=== PATIENT | female | born 1975 | race Caucasian/White ===

== ENCOUNTER 2024-07-03 04:37 | Emergency (ER) | payer OTHER ==
[~2024-07-03] VITALS: Ht 162.6 cm; Wt 90.0 kg
[2024-07-03] MEDS ORDERED: WEGOVY0.25 MG/0. SQ (04:52)
[2024-07-03 05:13] LABS: BASOPHILS 0.6 % (0-2); EOSINOPHILS 2.7 % (0-6); HEMATOCRIT 40.8 % (35.0-50.0); HEMOGLOBIN 13.8 g/dL (12.0-18.0); LYMPHOCYTES 16.4 % (24-44); MCH 29.1 (27-36); MCHC 33.9 g/dl (30-36); MCV 85.8 fl (81-99); MONOCYTES 4.5 % (0-12); NEUTROPHILS 75.8 % (39-80); PLATELET COUNT 290 K/uL (140-440); RBC 4.76 M/ul (4.3-5.7); RDW 14.7 (10.5-15.0)
[2024-07-03] MEDS ORDERED: ondansetron HCL 4 MG/2 ML VIAL IV ONE (05:15)
[2024-07-03] MEDS ORDERED: LACTATED RINGER'S 1,000 ML IV ONE (05:15)
[2024-07-03 05:32] LABS: ALBUMIN 4.4 g/dL (3.4-5.0); ALBUMIN/GLOBULIN RATIO 1.07 (1.1-2.4); ANION GAP 17.3 (7-21); BILIRUBIN, TOTAL 0.4 mg/dL (0.2-1.0); BUN/CREATININE RATIO 14.89 (6.0-28.6); CALCIUM 9.7 mg/dL (8.5-10.1); CREATININE, SERUM 0.94 mg/dL (0.55-1.02); POTASSIUM 3.3 mmol/L (3.5-5.1); PROTEIN, TOTAL 8.5 g/dL (6.4-8.2)
[2024-07-03 06:41] LABS: BILIRUBIN, URINE NEGATIVE (negative); BLOOD/HGB, URINE LARGE (Negative); KETONE, URINE NEGATIVE (Negative); LEUK ESTERASE, URINE NEGATIVE (negative); NITRITE, URINE NEGATIVE (negative); PH, URINE 6.5 (5-7)
[2024-07-03] MEDS ORDERED: ONDANSETRON 4 MG HOME.PACK SL ONE (06:45)
[2024-07-03 06:51] LABS: EPITHELIAL CELLS, URINE SQUAMOUS 1+ /lpf (0-1+)
[2024-07-03 06:52] LABS: BACTERIA, URINE NONE SEEN /hpf (negative); CASTS, URINE NONE SEEN \\lpf; COLLECTION TYPE, URINE CLEAN CATCH; CRYSTALS, URINE NONE SEEN (0-1+); RED BLOOD CELLS, URINE 21-40 /hpf (0-5)
[2024-07-03 06:53] LABS: REFLEX CULTURE, URINE No (No)
[2024-07-03 07:02] LABS: AMPHETAMINES, URINE NEGATIVE (NEGATIVE); BARBITURATES, URINE NEGATIVE (NEGATIVE); BENZODIAZEPINE, URINE NEGATIVE (NEGATIVE); BUPRENORPHINE, URINE NEGATIVE (NEGATIVE); CANNABINOID, URINE NEGATIVE (NEGATIVE); COCAINE, URINE NEGATIVE (NEGATIVE); ECSTASY, URINE NEGATIVE (NEGATIVE); FENTANYL, URINE NEGATIVE (NEGATIVE); METHADONE, URINE NEGATIVE (NEGATIVE); OPIATES, URINE NEGATIVE (NEGATIVE); OXYCODONE, URINE NEGATIVE (NEGATIVE); PHENCYCLIDINE, URINE NEGATIVE (NEGATIVE)
[2024-07-03 07:08] VITALS: BP 126/82
--- NOTE | 2024-07-03 19:48 | EKG ---
[facility] [address] [facility] [address] [place], [place] [address] Signed Sinus tachycardia T wave abnormality, consider inferior ischemia Abnormal ECG No previous ECGs available Confirmed by Casey Zuniga MD ([id number]) on 07/03/2024 7:48:10 PM Electronically Signed By: CASEY ZUNIGA MD 07/03/241947 PATIENT NAME: KRISTEN REED Electrocardiogram DATE OF : 73 PHYSICIAN: CASEY ZUNIGA MD REPORT #: [id number] REPORT IS CONFIDENTIAL AND NOT TO BE RELEASED WITHOUT AUTHORIZATION
== END 2024-07-03 07:17 | disposition home or self-care (01) ==
LOC: ED 04:37
PROVIDERS: Internal Medicine
DX: R55 Syncope and collapse (principal); R11.2 Nausea with vomiting, unspecified; R19.7 Diarrhea, unspecified; T38.3X5A Adverse effect of insulin and oral hypoglycemic [antidiabetic] drugs, initial encounter; Z79.899 Other long term (current) drug therapy
CPT/HCPCS: 36415; 71045; 80053; 80307; 81001; 83690; 84439; 84443; 84484; 85025; 93005; 93010; 96361; 96374; 99284-25; A9270; J2405; J7121

== ENCOUNTER 2024-12-30 07:37 | Day surgery (SDC) | payer OTHER ==
[~2024-12-30] VITALS: Ht 162.6 cm; Wt 85.0 kg
[~2024-12-30 07:37] MED LIST: IBLOOD GLUCOSE TEST STRIP 1 EA TEST VI PRN; LACTATED RINGER'S 1,000 ML IV SCH; LIDOCAINE HCL 1% 5 ML SDV INJ ONE; WEGOVY0.25 MG/0. SQ; ZESTRIL10 MG PO
[2024-12-30] MEDS ORDERED: LIDOCAINE HCL 2% 5 ML SDV ONE (07:50)
[2024-12-30 08:14] VITALS: BP 164/87
[2024-12-30] MEDS ORDERED: GLUCAGON,HUMAN RECOMBINANT 1 MG/ML VIAL ONE (09:41)
--- NOTE | 2024-12-30 10:36 | NUR ---
12/30/24 1036 Tana Dillon 1030: PT ARRIVES TO PACU ASLEEP AND NON REACTIVE. REPORT RECIEVED FROM INTERNAL CORROSION SPECIALIST AND EHR TRAINER.
[2024-12-30 11:01] VITALS: BP 118/67
--- NOTE | 2025-01-01 10:56 | PATH ---
[facility] [address] [place], [place] [address] Signed SPECIMEN(S): A HEPATIC FLEXURE COLON POLYP SPECIMEN(S): B CECUM COLON POLYP SPECIMEN(S): C MID TRANSVERSE COLON POLYP SPECIMEN SOURCE: A. HEPATIC FLEXURE COLON POLYP B. CECUM COLON POLYP C. MID TRANSVERSE COLON POLYP CLINICAL HISTORY: Screening. Post-polyp A-C) polyp FINAL PATHOLOGIC DIAGNOSIS: A. Hepatic flexure colon polyp: - Hyperplastic polyp and (three fragments). B. Cecum colon polyp: - Serrated polyp/adenoma (two fragments). C. Mid transverse colon polyp: - Slight adenomatous change (one fragment). [facility] MICROSCOPIC EXAMINATION: Histologic sections of all submitted blocks are examined by light microscopy. These findings, together with the gross examination, support the pathologic diagnosis. GROSS DESCRIPTION: A. The specimen, labeled and designated "Yvonne, hepatic flexure colon polyp," is received in formalin and consists of three hogan soft tissue fragments, ranging from 0.2-0.3 cm. Entirely submitted in (A1). B. The specimen, labeled and designated "[place], cecum colon polyp," is received in formalin and consists of two hogan soft tissue fragments, ranging from 0.2-0.3 cm. Entirely submitted in (B1). C. The specimen, labeled and designated "[place], mid transverse colon polyp," is received in formalin and consists of one hogan soft tissue fragment, 0.3 cm. Entirely submitted in (C1). AB (under the direct supervision of a pathologist) The Gross Description was prepared using a voice recognition system. The report was reviewed for accuracy; however, sound-alike word errors, addition and/or PATIENT NAME: KRISTEN REED PATHOLOGY DATE OF : 73 REPORT #: [id number] PHYSICIAN: DYLAN PATHOLOGY PCP: SCAR BAY MD REPORT IS CONFIDENTIAL AND NOT TO BE RELEASED WITHOUT AUTHORIZATION [facility] [address] [place], [place] [address] Signed deletions may occur. If there is any question about this report, please contact Client Services. ADDITIONAL NOTES: Immunohistochemical and/or in situ hybridization studies if performed in this case included appropriate positive controls that reacted as expected. This test was developed and its performance characteristics determined by [facility]. It has not been cleared or approved by the U.S. Food and Drug Administration. The FDA has determined that such clearance or approval is not necessary. This test is used for clinical purposes. It should not be regarded as investigational or for research. [facility] is certified under the Clinical Laboratory Improvement Amendments of 1988 (CLIA) as qualified to perform high complexity clinical laboratory testing. PERFORMING LABORATORY: Technical component was performed by [facility], [address] [place] [id number] (CLIA# [id number]). Professional interpretation was performed by [facility] - [place] - [address] [place] [address] (CLIA#: [id number]). Diagnostician: Arias Valencia MD Pathologist Electronically Signed 01/01/2025 Copies: ~ PATIENT NAME: KRISTEN REED PATHOLOGY DATE OF : 73 REPORT #: [id number] PHYSICIAN: DYLAN PATHOLOGY PCP: SCAR BAY MD REPORT IS CONFIDENTIAL AND NOT TO BE RELEASED WITHOUT AUTHORIZATION
== END 2024-12-30 11:10 | disposition home or self-care (01) ==
LOC: DS 07:37
PROVIDERS: ATTEND Surgery
PROC: 0DBL8ZX Excision of Transverse Colon, Via Natural or Artificial Opening Endoscopic, Diagnostic (ICD-10-PCS; 2024-12-30)
PROC: 0DBL8ZX Excision of Transverse Colon, Via Natural or Artificial Opening Endoscopic, Diagnostic (ICD-10-PCS; 2024-12-30)
PROC: 0DBH8ZX Excision of Cecum, Via Natural or Artificial Opening Endoscopic, Diagnostic (ICD-10-PCS; principal; 2024-12-30 09:20)
DX: Z12.11 Encounter for screening for malignant neoplasm of colon (principal); K63.5 Polyp of colon; D12.0 Benign neoplasm of cecum; D12.3 Benign neoplasm of transverse colon; E78.5 Hyperlipidemia, unspecified; I10 Essential (primary) hypertension; Z79.899 Other long term (current) drug therapy
CPT/HCPCS: 00811; J1610; J2003; J2704; J7121